=== PATIENT | female | born 2000 | race Two or more races ===

== ENCOUNTER → 2024-11-30 | Outpatient (CLI) | payer OTHER ==
[2024-11-30 13:53] LABS: Urine Bacteria None Seen /hpf (None Seen)
[2024-11-30 14:04] LABS: Urine Blood Negative /uL (Negative); Urine Clarity Turbid (Clear); Urine Color Light-Yellow (Yellow); Urine Mucus FEW (None Seen); Urine Protein, UAD Negative (Negative); Urine Specific Gravity 1.022 (1.001-1.035); Urine Squamous Epithelial Cell FEW /hpf (<5); Urine Urobilinogen Normal (Negative); Urine WBC 7 /HPF (0-5); Urine pH 6.5 (5.0-9.0)
[2024-11-30 14:06] LABS: Urine Budding Yeast MODERATE /hpf (None Seen)
[2024-11-30 14:35] LABS: Alanine Aminotransferase 26 U/L (7-40); Alkaline Phosphatase 63 U/L (46-116); Anion Gap 5 (5-15); Aspartate Aminotransferase 18 U/L (13-40); BUN/Creatinine Ratio 8.4 (10.0-20.0); Calcium 10.2 mg/dL (8.7-10.4); Carbon Dioxide 27 mmol/L (20-31); Cholesterol 120 mg/dL (< 200); Glucose 80 mg/dL (74-106); LDL Cholesterol 74 mg/dL (< 100); Potassium 4.5 mmol/L (3.5-5.1); Sodium 140 mmol/L (136-145); Total Protein 8.1 g/dL (5.7-8.2); Triglycerides 95 mg/dL (< 150)
[2024-11-30 14:36] LABS: Albumin 4.9 g/dL (3.2-4.8); Bilirubin, Total 0.5 mg/dL (0.2-1.0); Blood Urea Nitrogen 7 mg/dL (9-23); Chloride 108 mmol/L (98-107); HDL Cholesterol 38 mg/dL (40-59)
== END | disposition home or self-care (01) ==
LOC: LAB 13:42
PROVIDERS: ATTEND Family Medicine
DX: E11.9 Type 2 diabetes mellitus without complications (principal); E78.5 Hyperlipidemia, unspecified; E55.9 Vitamin D deficiency, unspecified
CPT/HCPCS: 36415; 80053; 80061; 81001; 82043; 83036

== ENCOUNTER → 2024-12-22 | Outpatient (CLI) | payer OTHER ==
[2024-12-22 09:46] LABS: LDL Cholesterol 91 mg/dL (< 100)
[2024-12-22 09:47] LABS: Cholesterol 136 mg/dL (< 200)
[2024-12-22 09:51] LABS: HDL Cholesterol 34 mg/dL (40-59); Triglycerides 193 mg/dL (< 150)
[2024-12-22 10:59] LABS: Prolactin 12.41 ng/mL (2.8-29.2); T3 Total 1.23 ng/mL (0.60-1.81)
[2024-12-22 11:04] LABS: Free T4 (Free Thyroxine) 0.98 ng/dL (0.89-1.76)
[2024-12-22 11:11] LABS: Follicle Stimulating Hormone 2.17 IU/L (SEE BELOW)
== END | disposition home or self-care (01) ==
LOC: LAB 09:02
PROVIDERS: ATTEND Family Medicine
DX: E11.9 Type 2 diabetes mellitus without complications (principal); E78.2 Mixed hyperlipidemia; E55.9 Vitamin D deficiency, unspecified; F41.9 Anxiety disorder, unspecified
CPT/HCPCS: 36415; 80061; 82306; 82626; 82670; 83001; 83002; 83036; 84144; 84146; 84403; 84439; 84443; 84480